=== PATIENT | male | born 1980 | race Caucasian/White ===

== ENCOUNTER 2019-11-09 03:40 | Emergency (ER) | payer SELFPAY ==
[~2019-11-09] VITALS: Ht 175.3 cm; Wt 80.7 kg
[2019-11-09 03:40] VITALS: BP_SYST 126
[2019-11-09] MEDS ORDERED: LevALBUTEROL HCL 1.25 MG/0.5 ML *CONC.* VIAL.NEB (XOPENEX CONC.) INH ONE (04:00)
[2019-11-09 04:13] VITALS: BP_SYST 124
== END 2019-11-09 04:13 ==
LOC: SED 03:40
DX: J45.909 Unspecified asthma, uncomplicated (principal); F41.9 Anxiety disorder, unspecified; F17.290 Nicotine dependence, other tobacco product, uncomplicated; F12.90 Cannabis use, unspecified, uncomplicated
CPT/HCPCS: 94640; 99283; J7612

== ENCOUNTER 2021-02-10 17:47 | Emergency (ER) | payer SELFPAY ==
[~2021-02-10] VITALS: Ht 175.3 cm; Wt 72.6 kg
[2021-02-10 17:47] VITALS: BP_SYST 132
--- NOTE | 2021-02-10 17:47 | NUR ---
PT TO [facility] FOR EVALUATION.
--- NOTE | 2021-02-10 17:50 | NUR ---
Pt bib [facility] for ok to book. Pt has abrasion on head. No acute distress noted. Bleeding controlled w/o dressing.
[2021-02-10] MEDS ORDERED: BACITRACIN 1 GM OINT TP ONE (18:00)
--- NOTE | 2021-02-10 18:00 | NUR ---
Site to head cleansed with NS. Bacitracin dressing applied. Tetanus vaccination current.
[2021-02-10 18:01] VITALS: BP_SYST 132
--- NOTE | 2021-02-10 18:01 | NUR ---
Patient given written and verbal discharge instructions and verbalizes understanding. ER MD discussed with patient the results and treatment provided. Patient in stable condition. ID arm band removed. no Rx given. Patient educated on pain management and to follow up with PMD. Pain Scale 0. Opportunity for questions provided and answered. Medication side effect fact sheet provided.
== END 2021-02-10 18:01 ==
LOC: SED 17:47
DX: S00.81XA Abrasion of other part of head, initial encounter (principal); J45.909 Unspecified asthma, uncomplicated; X58.XXXA Exposure to other specified factors, initial encounter; Y93.89 Activity, other specified; Y92.89 Other specified places as the place of occurrence of the external cause; Y99.8 Other external cause status
CPT/HCPCS: 99283